=== PATIENT | male | born 1965 | race Caucasian/White ===

== ENCOUNTER → 2017-02-11 | Outpatient (CLI) | payer BC ==
[~2017-02-11] MED LIST: ASPI325T80 PO; CARV12.543 PO; CHOL2000 PO; FURO-92 PO; LISI-170 PO; POTA20TA14 PO; WARF5TAB7 PO
== END | disposition home or self-care (01) ==
LOC: CFH 15:54
PROVIDERS: ATTEND Emergency Medicine
DX: M79.661 Pain in right lower leg (principal)